=== PATIENT | male | born 1985 | race Caucasian/White ===

== ENCOUNTER → 2019-05-21 | Outpatient (CLI) | payer OTHER | LOC: LAB.O 15:59 | PROVIDERS: ATTEND Nurse Practitioner | DX: D75.1 Secondary polycythemia (principal) ==

== ENCOUNTER → 2019-05-31 | Outpatient (CLI) | payer OTHER ==
--- NOTE | 2019-05-31 14:01 | CT ---
EXAM DESCRIPTION: CT ABDOMEN AND PELVIS WITHOUT AND WITH CONTRAST CLINICAL HISTORY: KIDNEY STONE COMPARISON: None Available. TECHNIQUE: CT of the abdomen and pelvis are performed prior to and during IV bolus administration of routine adult dose of nonionic iodinated contrast. No oral contrast. FINDINGS: CT abdomen The lung bases are clear of infiltrate. Few hepatic cysts are present, largest in the left lobe measuring 1.2 cm. Liver is otherwise unremarkable in size and parenchymal appearance on precontrast images. No calcified stones in the gallbladder. Spleen, pancreas, and kidneys are unremarkable. Small accessory splenule. After IV contrast, repeat helical scanning through the upper abdomen shows a few small hepatic cysts which are nonenhancing. Normal enhancement of the kidneys with tiny left renal cortical cyst. Normal enhancement of spleen and pancreas upper abdominal vessels. Delayed helical scanning through the upper abdomen shows normal contrast accumulation in the urinary collecting systems. No filling defects in the renal pelves. Proximal ureters are both opacified. The distal left ureter is opacified. CT pelvis No inflammation is seen around the cecum or terminal ileum or sigmoid colon. Appendix is normal in appearance. No stones are seen in the distal ureters or bladder. After IV contrast, contrast is seen in the bladder and distal left ureter. Normal pelvic small bowel loops. No fracture or lytic lesion of the osseous structures. Postcontrast images show normal enhancement of the pelvic vessels. Prostate and seminal vesicles appear normal. Coronal and sagittal reformatted images confirm the findings. IMPRESSION: Negative for renal or ureteral stones. Tiny left renal cyst. Otherwise normal CT appearance of the kidneys, ureters and bladder. This exam was performed according to our departmental dose-optimization program, which includes automated exposure control, adjustment of the mA and/or kV according to patient size and/or use of iterative reconstruction technique. Electronically signed by: Oziel Underwood MD 05/31/2019 1:55 PM CDT
== END ==
LOC: LAB.O 08:27
PROVIDERS: ATTEND Urology
DX: R10.13 Epigastric pain (principal); N28.1 Cyst of kidney, acquired; D75.1 Secondary polycythemia

== ENCOUNTER → 2020-10-06 | Outpatient (CLI) | payer OTHER ==
--- NOTE | 2020-10-06 14:12 | CT ---
EXAM DESCRIPTION: Chest w/Contrast : Computed Tomography. CLINICAL HISTORY: 34 years Male HYPOXEMIA. History of COVID 19 infection, positive test September 19. No fever. Persistent dyspnea, coughing, and fatigue. COMPARISON: CT scan abdomen and pelvis May 2019 TECHNIQUE: Spiral-axial scans at 5.0 mm intervals through the lungs and thorax with 75 mL Optiray 325 IV contrast. 2.5 x 5.0 mm lung algorithm axial reconstructions. Coronal and sagittal 2.0 Mm reconstructions. No adverse reactions. Total Exam DLP: 1000 mGy-cm. This exam was performed according to our departmental dose-optimization program which includes automated exposure control, adjustment of the mA and/or kV according to patient size and/or use of iterative reconstruction technique; to reduce radiation dose to as low as reasonably achievable (ALARA). Nodule measurements under 10 mm are given as mean value of 3 axes diameters. FINDINGS: Lungs and large airways: Bilateral peripheral subpleural groundglass nodules which are more confluent and larger and consolidating in the superior and basilar segments of the left lower lobe, medial segments of the right lower lobe, inferior lingula, and right middle lobe. Air bronchograms are present in the larger nodules and consolidations. Scattered bilateral groundglass nodules 1 to 2 cm in diameter with spiculated margins, upper and lower lobes, more subpleural and peripheral than central. Less involvement of the lateral basal segments of the right lower lobe and the mid and upper left upper lobe. The distribution and appearance of these infiltrates is consistent with the clinical history. Pleural spaces: Minimal pleural thickening with no acute process. Mediastinum and Trudy: Small air pockets in the anterior and lateral mediastinal fat. No enlarged lymph nodes are dominant soft tissue masses or abnormal enhancement Great vessels and Heart: Normal contour of the great vessels. No coronary artery calcifications. No contrast in the mediastinum. Normal caliber of the proximal brachiocephalic vessels. Soft tissues of neck base, axillae, and chest wall: Negative. Upper abdomen: No free air or free fluid in the included peritoneal space. Stable cysts in the lateral and medial segment of the left lobe and superior right lobe of the liver. Gallbladder and adrenal glands, stomach, spleen and pancreas partially visualized. Osseous structures: No acute or significant bony abnormalities. IMPRESSION: 1. Bilateral confluent groundglass nodules and consolidations that are predominantly peripheral and subpleural, as well as bilateral smaller confluent nodules. Commonly reported imaging features of COVID-19 pneumonia are present. Other processes such as influenza pneumonia and organizing pneumonia, as can be seen with drug toxicity and connective tissue disease, can cause similar imaging pattern. Also some secondary bacterial infections. 2. Small pockets of air within the mediastinal fat. No extravasated contrast, no fluid pockets, or abnormal enhancement. No pneumothorax. These can be associated with chronic long-term coughing. No pleural effusion. No mediastinal or hilar mass or adenopathy. CRITICAL COMMUNICATION: The critical value was communicated directly by Dr. Baker via phone call, with Dr. Anson Hummel, at approximately 1400 hours, on October 06, 2020. Electronically signed by: Corbin Baker MD 10/06/2020 2:11 PM [facility]
== END ==
LOC: CT 11:33
PROVIDERS: ATTEND Emergency Medicine
DX: R09.02 Hypoxemia (principal); R91.8 Other nonspecific abnormal finding of lung field

== ENCOUNTER → 2020-10-23 | Outpatient (CLI) | payer OTHER ==
--- NOTE | 2020-10-23 13:10 | CT ---
EXAM DESCRIPTION: Chest w/Contrast CLINICAL HISTORY: 34 years, Male, Personal history of endocrine, nutritional and metabolic diseases COMPARISON: October 06, 2020 TECHNIQUE: Thin-section axial CT images are obtained during rapid bolus administration of 100 mL of IV contrast media. Reconstructed MPR images are created and reviewed as well. FINDINGS: Multifocal pulmonary parenchymal opacification with areas of mainly peripheral groundglass consolidation upper and lower lobes on both sides with more dense consolidation both lower lobes. This is improved since prior. No effusion. Heart and mediastinum unremarkable. No worrisome finding in the upper abdomen. IMPRESSION: Improving diffuse bilateral pneumonia This exam was performed according to our departmental dose-optimization program, which includes automated exposure control, adjustment of the mA and/or kV according to patient size and/or use of iterative reconstruction technique. Electronically signed by: Marvin Santo MD 10/23/2020 1:09 PM [facility]
--- NOTE | 2020-10-23 14:03 | MRI ---
EXAM DESCRIPTION: Brain w/o Contrast: MRI. CLINICAL HISTORY: TIA COMPARISON: None. TECHNIQUE: Multiplanar, high-field MRI unit, multiple diffusion sequences, multiple conventional sequences without contrast. FINDINGS: Normal FLAIR and T2-weighted signal in the periventricular white matter and sub-cortical white matter . Normal signal in the bilateral basal ganglia. Normal signal in the brainstem and cerebellar hemispheres. No hemorrhage, no cerebral edema, no mass-effect. Concordance of the diffusion and non-diffusion sequences with no diffusion restriction. Cortical sulci, ventricles, and other CSF spaces, and the subdural spaces are physiologic for the patient's age. No effacement or displacement. No midline shift. No extra-axial hemorrhage. Normal flow signal void in the major vessels of the [place], and the venous sinuses. IACs are symmetric bilaterally. Normal signal in the bilateral mastoid air cells. No mass effect in the bilateral cerebellopontine angles. Pituitary gland occupies most of the sella. Base of the cerebellar tonsils is at the level of the foramen magnum. Minimal mucoperiosteal thickening in the paranasal sinuses with no air-fluid levels.. The bony calvarium is intact. IMPRESSION: 1. Normal MRI scan of the brain without IV contrast. 2. Normal MRI diffusion scan with no evidence significant ischemia, or acute or subacute infarction. 3. Mild chronic sinusitis in the paranasal sinuses. Electronically signed by: Corbin Baker MD 10/23/2020 2:01 PM [facility]
== END ==
LOC: MRI 08:18
PROVIDERS: ATTEND Emergency Medicine
DX: J18.9 Pneumonia, unspecified organism (principal); Z86.73 Personal history of transient ischemic attack (TIA), and cerebral infarction without residual deficits; J32.9 Chronic sinusitis, unspecified